=== PATIENT | female | born 1950 | race Caucasian/White ===

== ENCOUNTER 2021-05-13 11:59 | Emergency (ER) | payer MEDICARE ==
[~2021-05-13] VITALS: Ht 167.6 cm; Wt 107.7 kg
[~2021-05-13 11:59] MED LIST: HYDR-3165 PO
[2021-05-13 12:32] VITALS: BP 187/77
--- NOTE | 2021-05-13 13:07 | PHYS DOC ---
Past History Past Medical History: CAD, CHF, Diabetes, GERD, Other (ROSHAN YUSUF APRN) Past Surgical History: Other Additional Past Surgical Histo: baratric, gastric sleeve (ROSHAN YUSUF APRN) Alcohol Use: None Drug Use: None (ROSHAN YUSUF APRN) General Adult EDM: Chief Complaint: UPPER EXTREMITY PAIN HPI: HPI: Patient is a 71-year-old female being seen for a skin tear to her left forearm. She reports that she scraped her arm on a shopping cart on Sunday. Patient was just concerned and wanted be evaluated because she was not sure if she needed antibiotics or if she had an infection. Patient denies any decreased sensation, decreased range of motion of her left arm. (ROSHAN YUSUF APRN) Review of Systems: Review of Systems: 14 body systems of the review of systems have been reviewed. See HPI for pertinent positive and negative responses, otherwise all other systems are negative, nonpertinent or noncontributory (ROSHAN YUSUF APRN) Allergies: Allergies: Allergies Coded Allergies Type Severity Reaction Last Updated Verified Penicillins Allergy Unknown 05/13/21 Yes Sulfa (Sulfonamide Antibiotics) Allergy Unknown 05/13/21 Yes (ROSHAN YUSUF APRN) Physical Exam: PE: Constitutional: Well developed, well nourished, no acute distress, non-toxic appearance. [] HENT: Normocephalic, atraumatic, bilateral external ears normal, oropharynx moist, no oral exudates, nose normal. [] Eyes: PERRL, conjunctiva normal, no discharge. [] Neck: Normal range of motion, no stridor Cardiovascular: Normal peripheral perfusion Lungs & Thorax: Normal work of breathing, no tachypnea Skin: Warm, dry, no erythema, no rash, ecchymosis noted to left forearm, 1.5 cm skin tear noted to left forearm without any active bleeding or signs of infection. [] Back: Normal range of motion Extremities: No tenderness, no cyanosis, no clubbing, ROM intact, no edema. [] Neurologic: Alert and oriented X 3, normal motor function, normal sensory function, no focal deficits noted. [] Psychologic: Affect normal, judgement normal, mood normal. [] (ROSHAN YUSUF APRN) Current Patient Data: Vital Signs: Vital Signs Date Time Temp Pulse Resp B/P (MAP) Pulse Ox O2 Delivery O2 Flow Rate FiO2 05/13/21 12:32 187/77 (113) 05/13/21 12:07 98.0 67 16 96 Room Air (ROSHAN YUSUF APRN) EKG: EKG: [] (ROSHAN YUSUF APRN) Radiology/Procedures: Radiology/Procedures: [] (ROSHAN YUSUF APRN) Heart Score: C/O Chest Pain: No Risk Factors: Risk Factors: DM, Current or recent (<one month) smoker, HTN, HLP, family history of CAD, obesity. Risk Scores: Score 0 - 3: 2.5% MACE over next 6 weeks - Discharge Home Score 4 - 6: 20.3% MACE over next 6 weeks - Admit for Clinical Observation Score 7 - 10: 72.7% MACE over next 6 weeks - Early Invasive Strategies (ROSHAN YUSUF APRN) Course & Med Decision Making: Course & Med Decision Making Pertinent Labs and Imaging studies reviewed. (See chart for details) [] Patient was seen in the ER for skin tear to her left forearm. This skin tear is not actively bleeding no signs of infection, no redness, warmth no swelling. Patient had been applying Neosporin and a bandage. Neuro intact and range of motion intact. Patient advised to apply Polysporin or bacitracin keep bandage in place and monitor for signs of infection. She was advised to take Tylenol or ibuprofen for any pain. I discussed with patient all findings as well as the need to follow-up with PCP for further evaluation and treatment or return to the ER if any new or worsening symptoms. Strict return precautions were also discussed at length. Patient voiced understanding and agreement with the plan. Patient is hemodynamically stable at the time of disposition. (ROSHAN YUSUF APRN) Dragon Disclaimer: Dragon Disclaimer: This electronic medical record was generated, in whole or in part, using a voice recognition dictation system. (ROSHAN YUSUF APRN) Dragon Disclaimer: I have participated in the care of this patient and I have reviewed and agree with all pertinent clinical information above including history, exam, and recommendations. (MAURICE CANO DO) Departure Departure: Impression: Primary Impression: Skin tear Disposition: HOME / SELF CARE / HOMELESS Condition: GOOD Referrals: MANAS HORNE MD (PCP) Patient Instructions: Skin Tear Care Additional Instructions: You were seen in the ER today for a skin tear to your left forearm. This skin tear appears to be healing well. There are no signs of infection such as redness, warmth, swelling. You can apply bacitracin or Polysporin and keep a bandage on it. Please monitor for signs of infection or increased pain. You can take Tylenol or ibuprofen for pain. Please follow-up with your primary care provider tomorrow regarding your ER visit. If you develop signs of infection, worsening of your pain, decreased range of motion of your arm or decreased sensation please return to the ER immediately. EMERGENCY DEPARTMENT GENERAL DISCHARGE INSTRUCTIONS Thank you for coming to [facility] (ED) today and trusting us with you care. We trust that you had a positivie experience in our Emergency Department. If you wish to speak to the department management, you may call the director at [phone]. YOUR FOLLOW UP INSTRUCTIONS ARE FOLLOWS: 1. Do you have a private Doctor? If you do not have a private doctor, please ask for a resource list of physicians or clinics that may be able to assist you with follow up care. 2. The Emergency Physician has interpreted your x-rays. The X-Ray specialist will also review them. If there is a change in the findings, you will be notified in 48 hours when at all possible. 3. A lab test or culture has been done, your results will be reviewed and you will be notified if you need a change in treatment. ADDITIONAL INSTRUCTIONS AND INFORMATION: 1. Your care today has been supervised by a physician who is specially trained in emergency care. Many problems require more than one evaluation for a complete diagnosis and treatment. We recommend that you schedule your follow up appointment as recomme nded to ensure complete treatment of you illness or injury. If you are unable to obtain follow up care and continue to have a problem, or if your condition worsens, we recommend that you return to the ED. 2. We are not able to safely determine your condition over the phone nor are we able to give sound medical advice over the phone. For these safety reasons, if you call for medical advice we will ask you to come to the ED for further evaluation. 3. If you have any questions regarding these discharge instructions please call the ED at [phone]. SAFETY INFORMATION: In the interest of safety, wellness, and injury prevention; we encourage you to wear your sealbelt, if you smoke; quite smoking, and we encourage family to use a protective helmet for bicycling and other sporting events that present an increased risk for head injury. IF YOUR SYMPTOMS WORSEN OR NEW SYMPTOMS DEVELOP, OR YOU HAVE CONCERNS ABOUT YOUR CONDITION; OR IF YOUR CONDITION WORSENS WHILE YOU ARE WAITING FOR YOUR FOLLOW UP APPOINTMENT; EITHER CONTACT YOUR PRIMARY CARE DOCTOR, THE PHYSICIAN WHOSE NAME AND NUMBER YOU WERE GIVEN, OR RETURN TO THE ED IMMEDIATELY. ROSHAN YUSUF APRN May 13, 2021 13:06 MAURICE CANO DO May 13, 2021 13:15
== END 2021-05-13 13:10 | disposition home or self-care (01) ==
LOC: ER 11:59
DX: S51.812A Laceration without foreign body of left forearm, initial encounter (principal); K21.9 Gastro-esophageal reflux disease without esophagitis; E11.9 Type 2 diabetes mellitus without complications; Z88.0 Allergy status to penicillin; Z88.2 Allergy status to sulfonamides; X58.XXXA Exposure to other specified factors, initial encounter; Y93.89 Activity, other specified; Y92.89 Other specified places as the place of occurrence of the external cause; Y99.8 Other external cause status
CPT/HCPCS: 99282

== ENCOUNTER 2021-09-04 12:58 | Emergency (ER) | payer MEDICARE ==
[~2021-09-04] VITALS: Ht 167.6 cm; Wt 92.0 kg
[2021-09-04 12:58] VITALS: BP 161/76
--- NOTE | 2021-09-04 13:25 | PHYS DOC ---
Past History Past Medical History: CAD, CHF, Diabetes, GERD, Other Past Surgical History: Appendectomy, Cholecystectomy, Tonsillectomy, Tubal ligation, Other Additional Past Surgical Histo: baratric, gastric sleeve Alcohol Use: None Drug Use: None General Adult EDM: Chief Complaint: LACERATION/AVULSION HPI: HPI: 71-year-old female presents with upper lip laceration. She was pulling some thread off of her craft shelf when a framing square came off a tank in the corner hit her in the lip. She sustained a laceration. She also feels like there is a laceration on the inside of her mouth. She was not sure if this would need repair so she came in for evaluation. Patient has dentures and d enies any loose teeth or other concerning trauma. She did not fall to the floor. She did not lose consciousness. She has no other complaints at this time. Tetanus is not up-to-date. Review of Systems: Review of Systems: Constitutional: Denies fever or chills Eyes: Denies change in visual acuity HENT: Denies nasal congestion or sore throat Respiratory: Denies cough or shortness of breath Cardiovascular: Denies chest pain or edema GI: Denies abdominal pain, nausea, vomiting, bloody stools or diarrhea : Denies dysuria Musculoskeletal: Denies back pain or joint pain Integument: Laceration upper lip Neurologic: Denies headache, focal weakness or sensory changes Endocrine: Denies polyuria or polydipsia Lymphatic: Denies swollen glands Psychiatric: Denies depression or anxiety Allergies: Allergies: Allergies Coded Allergies Type Severity Reaction Last Updated Verified Penicillins Allergy Unknown 05/13/21 Yes Sulfa (Sulfonamide Antibiotics) Allergy Unknown 05/13/21 Yes Physical Exam: PE: Constitutional: Well developed, well nourished, no acute distress, non-toxic appearance. [] HENT: Normocephalic, atraumatic, bilateral external ears normal, oropharynx moist, no oral exudates, nose normal. [] Eyes: PERRLA, EOMI, conjunctiva normal, no discharge. [] Neck: Normal range of motion, no tenderness, supple, no stridor. [] Cardiovascular: Heart rate regular rhythm, no murmur [] Lungs & Thorax: Bilateral breath sounds clear to auscultation [] Abdomen: Bowel sounds normal, soft, no tenderness, no masses, no pulsatile masses. [] Skin: Half centimeter vertical laceration of the upper lip, contusion and similar laceration on the inner lip already closed. [] Back: No tenderness, no CVA tenderness. [] Extremities: No tenderness, no cyanosis, no clubbing, ROM intact, no edema. [] Neurologic: Alert and oriented X 3, normal motor function, normal sensory function, no focal deficits noted. [] Psychologic: Affect normal, judgement normal, mood normal. [] Current Patient Data: Vital Signs: Vital Signs Date Time Temp Pulse Resp B/P (MAP) Pulse Ox O2 Delivery O2 Flow Rate FiO2 09/04/21 12:58 80 16 161/76 (104) 100 Room Air EKG: EKG: [] Radiology/Procedures: Radiology/Procedures: [] Heart Score: C/O Chest Pain: N/A Risk Factors: Risk Factors: DM, Current or recent (<one month) smoker, HTN, HLP, family history of CAD, obesity. Risk Scores: Score 0 - 3: 2.5% MACE over next 6 weeks - Discharge Home Score 4 - 6: 20.3% MACE over next 6 weeks - Admit for Clinical Observation Score 7 - 10: 72.7% MACE over next 6 weeks - Early Invasive Strategies Course & Med Decision Making: Course & Med Decision Making Pertinent Labs and Imaging studies reviewed. (See chart for details) Based on my exam, I do not believe this is a through and through laceration. I am unable to gape the wounds to see if they communicate. I also do not believe they line up exactly. We repaired the exterior skin. See note below for details. The inside of her mouth was already closed and bleeding was controlled. No further treatment is necessary. Tetanus was updated in the ED. She is stable for discharge at this time. [] Dragon Disclaimer: Dragon Disclaimer: This electronic medical record was generated, in whole or in part, using a voice recognition dictation system. Laceration Repair Lac Repair Indication: [] 5 mm linear laceration of the upper lip Procedure: I obtained verbal consent from the patient for tissue adhesive repair of her upper lip laceration. The wound was thoroughly irrigated with normal saline. No foreign bodies were found. No anesthesia was needed. I placed 2 layers of Dermabond skin adhesive over the wound. There was excellent skin approximation and bleeding was controlled. Tetanus was updated in the ED. No dressing was applied. Total repaired wound length: 5 mm Other Items: None The patient tolerated the procedure well. Complications: None. Departure Departure: Impression: Primary Impression: Lip laceration Qualified Codes: S01.511A - Laceration without foreign body of lip, initial encounter Disposition: HOME / SELF CARE / HOMELESS Condition: STABLE Referrals: MANAS HORNE MD (PCP) Patient Instructions: Tissue Adhesive Wound Care, [id number] SAFIA DELAROSA DO Sep 04, 2021 13:25
[2021-09-04] MEDS: DIPH,PERTUSS(ACELL),TET VAC/PF 0.5 ML SYRINGE. VAX IM ONE (13:42)
== END 2021-09-04 13:47 | disposition home or self-care (01) ==
LOC: ER 12:58
DX: S01.511A Laceration without foreign body of lip, initial encounter (principal); I25.10 Atherosclerotic heart disease of native coronary artery without angina pectoris; I50.9 Heart failure, unspecified; E11.9 Type 2 diabetes mellitus without complications; K21.9 Gastro-esophageal reflux disease without esophagitis; Z88.0 Allergy status to penicillin; Z88.2 Allergy status to sulfonamides; W22.8XXA Striking against or struck by other objects, initial encounter; Y93.89 Activity, other specified; Y92.89 Other specified places as the place of occurrence of the external cause; Y99.8 Other external cause status
CPT/HCPCS: 12011; 90471; 90715; 99283

== ENCOUNTER 2021-12-06 08:06 | Emergency (ER) | payer MEDICARE ==
[~2021-12-06] VITALS: Ht 167.6 cm; Wt 92.4 kg
--- NOTE | 2021-12-06 08:14 | PHYS DOC ---
Past History Past Medical History: CAD, CHF, Diabetes, GERD, Other Past Surgical History: Appendectomy, Cholecystectomy, Tonsillectomy, Tubal ligation, Other Additional Past Surgical Histo: baratric, gastric sleeve Alcohol Use: None Drug Use: None General Adult HPI: HPI: Patient is a 71-year-old female brought in by EMS after a fall. Patient was walking into her back deck when she slipped on the ice and fell onto her left side. Patient denies any loss of consciousness and was able to call 911 immediately. Was unable to get up was on the ground outside until EMS showed up. EMS gave fentanyl prior to arrival. Patient complaining of pain in her left upper leg. Noticeable shortening. Patient takes a baby aspirin, no other blood thinners. Review of Systems: Review of Systems: All other systems within normal limits except for as noted in the HPI Allergies: Allergies: Allergies Coded Allergies Type Severity Reaction Last Updated Verified Penicillins Allergy Unknown 05/13/21 Yes Sulfa (Sulfonamide Antibiotics) Allergy Unknown 05/13/21 Yes Physical Exam: PE: Constitutional: Well developed, well nourished, no acute distress, non-toxic appearance. [] HENT: Normocephalic, atraumatic, bilateral external ears normal, nose normal. [] Eyes: PERRLA, conjunctiva normal, no discharge. [] Neck: No rigidity, supple, no stridor. No tenderness [] Cardiovascular: Regular rate and rhythm, brisk cap refill [] Lungs & Thorax: Non labored symmetric respirations, no tachypnea or respiratory distress. No tenderness to palpation [] Abdomen: Soft, nondistended, no tenderness palpation. Skin: Warm, dry, no erythema, no rash. [] Back: Unremarkable Extremities: no tenderness palpation on upper extremities or right lower extremity. Shortening of left leg with deformity in left thigh. Strong DP pulses. Neurologic: Alert and oriented X 3, no focal deficits noted. No sensory deficits. Able to move ankle and toes on left lower extreme [] Psychologic: Affect normal, judgement normal, mood normal. [] EKG: EKG: Sinus rhythm, heart rate 68 bpm, slight left axis deviation, normal intervals, no ectopy, no STEMI [] Radiology/Procedures: Radiology/Procedures: [address] [address] IMAGING REPORT Signed PATIENT: EMILY GUTIERREZ ACCOUNT: [id number] : 1950 LOCATION: ER AGE: 71 SEX: F EXAM STATUS: REG ER ORD. PHYSICIAN: FRANCOISE BARRAGAN MD REASON: fall PROCEDURE: TIBIA FIBULA LEFT EXAM: XR LT TIBIA + FIBULA, XR HIP (WITH OR WITHOUT PELVIS)LEFT 1 VIEW, XR FEMUR_LEFT 1 VIEW 12/06/2021 8:11 AM CLINICAL INDICATION: Fall COMPARISON: None FINDINGS: Left hip and pelvis: 2 views were obtained. There is an incompletely visualized displaced left femoral shaft fracture. No other fracture or malalignment. Hip joint spaces are maintained. No pubic symphysis or sacroiliac joint widening. There is mild degenerative joint disease of the left sacral iliac joint. Lower lumbar facet arthrosis. Left femur: 2 views were obtained. There is a comminuted oblique fracture of the mid to distal femoral diaphysis with slightly greater than one shaft width med ial displacement and one shaft width posterior displacement and of the main distal fragment. There is about medial angulation of the distal fragment and 5 cm overlap of fragments. Alignment at the hip and knee is maintained. Left tibia and fibula: 1 views obtained. The tibial plateau and fibular head are incompletely visualized. No fracture of the visualized portion of the tibia or fibula. Alignment the ankle is maintained. IMPRESSION: 1. Comminuted, displaced and angulated left femoral shaft fracture. 2. No fracture in the visualized portion of the left tibia and fibula. The tibial plateau and fibular head are incompletely imaged. Electronically signed by: Francoise Costa MD (12/06/2021 8:53 AM) [id number] DICTATED AND SIGNED BY: FRANCOISE COSTA MD DATE: 12/06/21 0848 CC: FRANCOISE BARRAGAN MD; MANAS HORNE MD ~MTH0 0 [][address] [address] IMAGING REPORT Signed PATIENT: EMILY GUTIERREZ ACCOUNT: [id number] : 1950 LOCATION: ER AGE: 71 SEX: F EXAM STATUS: REG ER ORD. PHYSICIAN: FRANCOISE BARRAGAN MD REASON: fall PROCEDURE: CHEST AP ONLY XR CHEST 1V History: Fall. Pain. Comparison: None. Technique: Portable AP radiograph of the chest. Findings: The lungs are adequately inflated. Streaky right midlung opacity. No pleural effusion or pneumothorax. Cardiac silhouette and pulmonary vasculature are within normal limits. Osseous structures and soft tissues are unremarkable. Impression: 1. Streaky right midlung opacity may represent consolidation, atelectasis or scar. Recommend repeat chest radiographs and 6-12 weeks to ensure resolution. Electronically signed by: Tigre Richards MD (12/06/2021 8:48 AM) [id number] DICTATED AND SIGNED BY: TIGRE RICHARDS MD DATE: 12/06/21845 CC: FRANCOISE BARRAGAN MD; MANAS HORNE MD ~MTH0 0 Heart Score: C/O Chest Pain: No Risk Factors: Risk Factors: DM, Current or recent (<one month) smoker, HTN, HLP, family history of CAD, obesity. Risk Scores: Score 0 - 3: 2.5% MACE over next 6 weeks - Discharge Home Score 4 - 6: 20.3% MACE over next 6 weeks - Admit for Clinical Observation Score 7 - 10: 72.7% MACE over next 6 weeks - Early Invasive Strategies Course & Med Decision Making: Course & Med Decision Making Pertinent Labs and Imaging studies reviewed. (See chart for details) Consult placed to orthopedic surgeon Dr. Law at [facility], will accept patient likely OR today for ORIF of left femur. Patient made n.p.o. Spoke with Dr. Leach who will accept patient on hospitalist service. Patient remains neurovascularly intact distal to injury. Patient transferred to [facility] via EMS [] Dragon Disclaimer: Dragon Disclaimer: This electronic medical record was generated, in whole or in part, using a voice recognition dictation system. Departure Departure: Impression: Primary Impression: Fall Additional Impression: Closed traumatic displaced fracture of shaft of left femur Disposition: 02 SHORT TERM [facility]OSPITAL Condition: GUARDED Referrals: MANAS HORNE MD (PCP) FRANCOISE BARRAGAN MD Dec 06, 2021 08:14
--- NOTE | 2021-12-06 08:51 | RAD ---
XR CHEST 1V History: Fall. Pain. Comparison: None. Technique: Portable AP radiograph of the chest. Findings: The lungs are adequately inflated. Streaky right midlung opacity. No pleural effusion or pneumothorax . Cardiac silhouette and pulmonary vasculature are within normal limits. Osseous structures and soft tissues are unremarkable. Impression: 1. Streaky right midlung opacity may represent consolidation, atelectasis or scar. Recommend repeat chest radiographs and 6-12 weeks to ensure resolution. Electronically signed by: Tigre Spencer MD (12/06/2021 8:48 AM) [id number]
--- NOTE | 2021-12-06 08:56 | RAD ---
EXAM: XR LT TIBIA + FIBULA, XR HIP (WITH OR WITHOUT PELVIS)LEFT 1 VIEW, XR FEMUR_LEFT 1 VIEW 12/06/19 8:11 AM CLINICAL INDICATION: Fall COMPARISON: None FINDINGS: Left hip and pelvis: 2 views were obtained. There is an incompletely visualized displaced left femora l shaft fracture. No other fracture or malalignment. Hip joint spaces are maintained. No pubic symphy sis or sacroiliac joint widening. There is mild degenerative joint disease of the left sacral iliac j oint. Lower lumbar facet arthrosis. Left femur: 2 views were obtained. There is a comminuted oblique fracture of the mid to distal femora l diaphysis with slightly greater than one shaft width medial displacement and one shaft width tieing machine operator ior displacement and of the main distal fragment. There is about medial angulation of the distal frag ment and 5 cm overlap of fragments. Alignment at the hip and knee is maintained. Left tibia and fibula: 1 views obtained. The tibial plateau and fibular head are incompletely visuali zed. No fracture of the visualized portion of the tibia or fibula. Alignment the ankle is maintained. IMPRESSION: 1. Comminuted, displaced and angulated left femoral shaft fracture. 2. No fracture in the visualized portion of the left tibia and fibula. The tibial plateau and fibular head are incompletely imaged. Electronically signed by: Francoise Costa MD (12/06/2021 8:53 AM) [id number]
--- NOTE | 2021-12-06 08:56 | RAD ---
EXAM: XR LT TIBIA + FIBULA, XR HIP (WITH OR WITHOUT PELVIS)LEFT 1 VIEW, XR FEMUR_LEFT 1 VIEW 12/06/19 8:11 AM CLINICAL INDICATION: Fall COMPARISON: None FINDINGS: Left hip and pelvis: 2 views were obtained. There is an incompletely visualized displaced left femora l shaft fracture. No other fracture or malalignment. Hip joint spaces are maintained. No pubic symphy sis or sacroiliac joint widening. There is mild degenerative joint disease of the left sacral iliac j oint. Lower lumbar facet arthrosis. Left femur: 2 views were obtained. There is a comminuted oblique fracture of the mid to distal femora l diaphysis with slightly greater than one shaft width medial displacement and one shaft width director of family service center ior displacement and of the main distal fragment. There is about medial angulation of the distal frag ment and 5 cm overlap of fragments. Alignment at the hip and knee is maintained. Left tibia and fibula: 1 views obtained. The tibial plateau and fibular head are incompletely visuali zed. No fracture of the visualized portion of the tibia or fibula. Alignment the ankle is maintained. IMPRESSION: 1. Comminuted, displaced and angulated left femoral shaft fracture. 2. No fracture in the visualized portion of the left tibia and fibula. The tibial plateau and fibular head are incompletely imaged. Electronically signed by: Francoise Costa MD (12/06/2021 8:53 AM) [id number]
[2021-12-06 09:04] LABS: BASO # 0.1 x10^3/uL (0.0-0.2); BASO % 1 % (0-3); EOS # 0.4 x10^3/uL (0.0-0.7); EOS % 5 % (0-3); HEMATOCRIT 43.4 % (36.0-47.0); HEMOGLOBIN 14.3 g/dL (12.0-15.5); LYMPH % 14 % (24-48); MEAN CORPUSCULAR HEMOGLOBIN 29 pg (25-35); MEAN CORPUSCULAR HGB CONC 33 g/dL (31-37); MEAN CORPUSCULAR VOLUME 89 fL (79-100); MONO # 0.5 x10^3/uL (0.0-1.1); MONO % 7 % (0-9); NEUT # 5.2 x10^3uL (1.8-7.7); NEUT % 73 % (31-73); PLATELET COUNT 234 x10^3/uL (140-400); RED BLOOD COUNT 4.89 x10^6/uL (3.50-5.40); RED CELL DISTRIBUTION WIDTH 13.2 % (11.5-14.5); WHITE BLOOD COUNT 7.2 x10^3/uL (4.0-11.0)
[2021-12-06 09:11] LABS: CALCIUM 9.7 mg/dL (8.5-10.1); CREATININE 0.7 mg/dL (0.6-1.0); GFR 82.5; POTASSIUM 4.1 mmol/L (3.5-5.1)
[2021-12-06 09:17] LABS: ALBUMIN 3.5 g/dL (3.4-5.0); ALBUMIN/GLOBULIN RATIO 1.1 (1.0-1.7); TOTAL BILIRUBIN 0.8 mg/dL (0.2-1.0); TOTAL PROTEIN 6.8 g/dL (6.4-8.2)
[2021-12-06 09:21] LABS: INFLUENZA A PATIENT NEGATIVE (NEGATIVE); INFLUENZA B PATIENT NEGATIVE (NEGATIVE)
[2021-12-06] MEDS: HYDROmorphone PF 1 MG/ML DISP.SYRIN IVP PRN ×2 (09:41→11:27)
--- NOTE | 2021-12-06 10:38 | EKG ---
[address] [address] Test Date: 2021-12-06 Test Time: 10:05:34 Pat Name: EMILY GUTIERREZ Department: Room: Gender: F Utility Assembler: [id number] : 1950 Requested By: BAKARI BARRAGAN Order Number: [id number] Reading MD: Measurements Intervals [place] Rate: 68 P: 90 OK: 240 QRS: -2 QRSD: 98 T: 59 QT: 374 QTc: 402 Interpretive Statements SINUS RHYTHM PROLONGED OK INTERVAL LEFTWARD AXIS QRS(T) CONTOUR ABNORMALITY CONSIDER ANTEROSEPTAL INFARCT ABNORMAL ECG RI6.01 No previous ECG available for comparison
[2021-12-06 10:54] LABS: BACTERIA,URINE MOD /HPF (0-FEW); CLARITY,URINE CLEAR; COLOR,URINE YELLOW; GLUCOSE,URINE NEG (NEG); NITRITE,URINE POS (NEG); RBC,URINE OCC /HPF (0-2); SQUAMOUS EPITHELIAL CELL,UR FEW /LPF; UROBILINOGEN,URINE 0.2 mg/dL (0.2 mg/dL)
[2021-12-06 10:55] LABS: AMORPHOUS SEDIMENT,UR PRESENT /HPF
[2021-12-06 11:42] VITALS: BP 175/78
== END 2021-12-06 11:45 | disposition short-term general hospital (02) ==
LOC: ER 08:06
DX: S72.302A Unspecified fracture of shaft of left femur, initial encounter for closed fracture (principal); I25.10 Atherosclerotic heart disease of native coronary artery without angina pectoris; I50.9 Heart failure, unspecified; E11.9 Type 2 diabetes mellitus without complications; K21.9 Gastro-esophageal reflux disease without esophagitis; Z20.822 Contact with and (suspected) exposure to COVID-19; Z88.0 Allergy status to penicillin; Z88.2 Allergy status to sulfonamides; W00.0XXA Fall on same level due to ice and snow, initial encounter; Y93.01 Activity, walking, marching and hiking; Y92.89 Other specified places as the place of occurrence of the external cause; Y99.8 Other external cause status
CPT/HCPCS: 71045; 73501; 73552; 73590; 80053; 81001; 85025; 87086; 87428; 93005; 96374; 99285; C9803; J1170; P9612; U0003; 87077; 87186